=== PATIENT | male | born 1995 | race Caucasian/White ===

== ENCOUNTER 2021-11-21 02:59 | Emergency (ER) | payer OTHER ==
[~2021-11-21] VITALS: Ht 167.6 cm; Wt 54.4 kg
[~2021-11-21 02:59] MED LIST: ACET325; BUPR150ER; CODGUAEL PO; ESCI20; GENT.3OPSA OS; IBUP600 PO; Norco 5-325 Ta1 EACH PO; Omeprazole20 M1 PO; RXCODGUASY PO
== END 2021-11-21 07:21 | disposition home or self-care (01) ==
LOC: ER 02:59
DX: S09.90XA Unspecified injury of head, initial encounter (principal); S50.12XA Contusion of left forearm, initial encounter; S01.01XA Laceration without foreign body of scalp, initial encounter; F17.200 Nicotine dependence, unspecified, uncomplicated; W22.8XXA Striking against or struck by other objects, initial encounter; Z79.899 Other long term (current) drug therapy
CPT/HCPCS: 73090; A9270